=== PATIENT | female | born 1985 | race Caucasian/White ===

== ENCOUNTER 2022-06-08 07:50 | Observation (INO) ==
[2022-06-08 08:28] LABS: Basophils % 0.3 %; Eosinophils % 0.3 %; Hematocrit 38.8 % (35.3-44.9); Hemoglobin 13.1 g/dL (11.5-15.4); Immature Granulocytes % 0.4 % (0-4); Lymphocytes # 1.1 K/mcL (0.6-4.6); Lymphocytes % 15.7 %; Mean Corpuscular HGB Conc 33.8 g/dL (31.6-35.5); Mean Corpuscular Hemoglobin 28.7 pg (28.0-33.3); Mean Corpuscular Volume 85.1 fL (83.0-100.0); Mean Platelet Volume 9.2 fL (9.4-12.4); Monocytes # 0.4 K/mcL (0.0-1.3); Monocytes % 5.3 %; Neutrophils # 5.6 K/mcL (1.6-8.9); Platelet Count 283 K/mcL (140-400); Red Blood Count 4.56 M/mcL (3.82-4.97); Red Cell Distribution Width 12.9 % (11.5-14.5); White Blood Count 7.1 K/mcL (4.3-11.1)
[2022-06-08 08:49] LABS: Acetaminophen < 10 mcg/mL (10-20); Alanine Aminotransferase 19 Units/L (7-52); Albumin 4.4 g/dL (3.5-5.7); Albumin/Globulin Ratio 1.8 (1.1-2.2); Alkaline Phosphatase 50 Units/L (34-104); Aspartate Amino Transferase 17 Units/L (13-39); BUN/Creatinine Ratio 18 (6-26); Bilirubin,Direct 0.1 mg/dL (0.0-0.2); Bilirubin,Indirect 0.4 mg/dL (0.0-1.0); Bilirubin,Total 0.5 mg/dL (0.3-1.0); Blood Urea Nitrogen 16 mg/dL (6-20); Calcium 9.4 mg/dL (8.6-10.3); Carbon Dioxide 24 mEq/L (23-29); Chloride 107 mEq/L (98-107); Chol/HDL Ratio 5.3 (0-4.9); Cholesterol 248 mg/dL (< 200); Ethanol < 10 mg/dL (Less than 10); Globulin 2.4 g/dL (2.4-3.5); Glucose 115 mg/dL (70-105); HDL Cholesterol 47 mg/dL (40-59); LDL Cholesterol,Calculated 178 mg/dL (< 100); Osmolality,Calculated 290 (280-300); Potassium 3.8 mEq/L (3.5-5.1); Salicylate < 2.5 mg/dL (15.0-30.0); Sodium 139 mEq/L (136-145); Total Protein 6.8 g/dL (6.4-8.9); Triglycerides 113 mg/dL (< 150)
[2022-06-08 09:26] LABS: Estimated Average Glucose 111 mg/dl; Hemoglobin A1C 5.5 %
[2022-06-08 11:23] LABS: Amphetamine Screen,Urine Negative ng/mL (Cutoff=1000); Barbiturate Screen,Urine Negative ng/mL (Cutoff=200); Benzodiazepines Screen,Urine Negative ng/mL (Cutoff=200); Cannabinoid Screen,Urine Negative ng/mL (Cutoff = 50); Cocaine Screen,Urine Negative ng/mL (Cutoff= 300); Opiate Screen,Urine Negative ng/mL (Cutoff=300); Phencyclidine Screen,Urine Negative ng/mL (Cutoff=25)
[2022-06-08 11:26] LABS: Bilirubin,Urine Negative (Negative); Blood,Urine Negative (Negative); Clarity,Urine Clear (Clear); Color,Urine Light-Yellow (Yellow); Glucose,Urine (UA) Normal (Normal); Ketones,Urine Negative (Negative); Leukocyte Esterase,Urine Negative (Negative); Nitrite,Urine Negative (Negative); Protein,Urine Negative (Neg-Trace); Specific Gravity,Urine 1.011 (1.010-1.025); Urobilinogen,Urine Normal (Normal)
[2022-06-08 16:13] LABS: Influenza A PCR Negative (Negative); Influenza B PCR Negative (Negative); Resp. Syncytial Virus PCR Negative (Negative)
[2022-06-08 17:03] LABS: SARS-CoV-2 by PCR (In House) Negative (Negative)
[2022-06-08] MEDS ORDERED: Ibuprofen 400 MG TABLET PO PRN (17:12)
[2022-06-08] MEDS ORDERED: *HR* LORazepam 1 MG TABLET PO PRN (17:12)
[2022-06-08] MEDS ORDERED: *HR* LORazepam 2 MG/ML VIAL IM PRN (17:12)
[2022-06-08] MEDS ORDERED: Haloperidol Lactate 5 MG/ML VIAL IM PRN (17:12)
[2022-06-08] MEDS ORDERED: traZODone 50 MG TABLET PO PRN (17:12)
[2022-06-08] MEDS ORDERED: haloperidoL 5 MG TABLET PO PRN (17:12)
[2022-06-08] MEDS ORDERED: Acetaminophen 325 MG TABLET PO PRN (17:12)
[2022-06-08] MEDS ORDERED: hydrOXYzine pamoate 25 MG CAPSULE PO PRN (17:12)
[2022-06-08] MEDS ORDERED: lamoTRIgine 100 MG TABLET PO ONE (20:21)
[2022-06-08] MEDS ORDERED: Venlafaxine XR (24 HR) 150 MG CAP.ER.24H PO ONE (20:30)
[2022-06-08] MEDS ORDERED: tiZANidine 4 MG TABLET PO SCH (21:00)
[2022-06-08] MEDS ORDERED: Mag Hydrox/Al Hydrox/Simeth 30 ML UDC PO PRN (21:40)
[2022-06-08] MEDS ORDERED: MOM Conc 10 ML UD.LIQ PO PRN (21:40)
[2022-06-09] MEDS ORDERED: lamoTRIgine 100 MG TABLET PO SCH ×2 (09:00→21:00)
[2022-06-09 09:14] VITALS: BP 132/97; PULSE 94; TEMP 97.9; O2SAT 97
== END 2022-06-09 15:05 | disposition home or self-care (01) ==
LOC: EMEROOARM 07:50 → 1ANU 18:15 → INTOOBSV 18:15 → 1ANU 18:48
PROVIDERS: ADMIT Psychiatry & Neurology Psychiatry; ATTEND Psychiatry & Neurology Psychiatry